=== PATIENT | male | born 1985 | race Caucasian/White ===

== ENCOUNTER 2021-07-13 14:20 | Emergency (ER) | payer OTHER ==
[~2021-07-13] VITALS: Ht 177.8 cm; Wt 84.1 kg
[~2021-07-13 14:20] MED LIST: ZOFRAN 4MG T4 MG/TAB PO
[2021-07-13 15:00] VITALS: TEMP 97.4
[2021-07-13] MEDS ORDERED: FLEXERIL 1010 MG/TAB PO (16:04)
[2021-07-13] MEDS ORDERED: NORCO 325 MG-51 TAB PO (16:04)
[2021-07-13] MEDS ORDERED: MEDROL 4MG DOSPA4 MG PO (16:04)
[2021-07-13 16:24] VITALS: BP 112/76; PULSE 82
== END 2021-07-13 16:25 | disposition home or self-care (01) ==
LOC: COL.ER 14:20
DX: S39.012A Strain of muscle, fascia and tendon of lower back, initial encounter (principal); M54.16 Radiculopathy, lumbar region; X50.0XXA Overexertion from strenuous movement or load, initial encounter
CPT/HCPCS: J1885